=== PATIENT | male | born 1970 | race Caucasian/White ===

== ENCOUNTER 2019-01-27 10:06 | Emergency (ER) | payer OTHER ==
[2019-01-27] MEDS ORDERED: OXYCODONE-ACETAMINOPHEN 5-325 MG TABLET PO ONE (10:27)
--- NOTE | 2019-01-27 10:29 | ER Document Report ---
ED Medical Screen (RME) - General Chief Complaint: Fall Injury Stated Complaint: FALL Time Seen by Provider: 01/27/19 10:18 Primary Care Provider: ERNESTO OLIVO MD [Primary Care Provider] - Follow up as needed Notes: Patient is a 49-year-old male with a history of hypertension who presents the emergency department with a chief complaint of fall. Patient reports 2 days ago he was working at [employer] when he slipped on a piece of wood on metal bleachers. Patient reports he did fall onto his left lower ribs. Patient reports he has had difficulty taking a deep breath over the past 2 days. Patien t reports is extremely painful. Patient denies head injury or loss of consciousness. Patient reports he does have a history of high blood pressure and has been out of his medications for 1 to 2 weeks. TRAVEL OUTSIDE OF THE [place] IN LAST 30 DAYS: No - Related Data Allergies/Adverse Reactions: hydromorphone HCl [From Dilaudid] Adverse Reaction (Severe, Verified 01/27/19 10:18) suicidal ideation Home Medications: blood pressure medication Past Medical History - Social History Chew tobacco use (# tins/day): Yes Frequency of alcohol use: Social Drug Abuse: None - Past Medical History Cardiac Medical History: Reports: Hx Hypertension Past Surgical History: Reports: Hx Orthopedic Surgery - right knee meniscus, right ankle fx - Immunizations Hx Diphtheria, Pertussis, Tetanus Vaccination: No Physical Exam - Vital signs Vitals: Temp Pulse Resp BP Pulse Ox 97.8 F 90 18 205/129 H 100 01/27/19 10:11 01/27/19 10:11 01/27/19 10:11 01/27/19 10:11 01/27/19 10:11 - Respiratory Chest status: Tender Breath sounds: Normal Notes: Tenderness noted to the left lateral and left anterior chest wall. No obvious ecchymosis. Patient unable to take a deep breath due to significant pain. Course - Re-evaluation Re-evalutation: 01/27/19 10:28 Patient upgraded to a level 3 as the patient is extremely hypertensive. Patient reports he has been out of his blood pressure medication for 1 to 2 weeks. Patient denies headache, dizziness, chest pain. Will obtain a chest x-ray with focus on the left side of the ribs. I will give the patient Percocet. Patient agreement with this plan and denies questions at this time. I have greeted and performed a rapid initial assessment of this patient. A comprehensive ED assessment and evaluation of the patient, analysis of test results and completion of the medical decision making process will be conducted by additional ED providers. - Vital Signs Vital signs: Temp Pulse Resp BP Pulse Ox 97.8 F 90 18 205/129 H 100 01/27/19 10:18 01/27/19 10:18 01/27/19 10:18 01/27/19 10:18 01/27/19 10:18 Doctor's Discharge - Discharge Referrals: ERNESTO OLIVO MD [Primary Care Provider] - Follow up as needed
[2019-01-27] MEDS ORDERED: ONDANSETRON HCL INJ/PF 4 MG/2 ML SDV IV ONE (10:54)
--- NOTE | 2019-01-27 11:04 | RADIOLOGY REPORT (SQ) ---
EXAM DESCRIPTION: RIBS LEFT W/PA CHEST COMPLETED DATE/TIME: 01/27/2019 10:47 am REASON FOR STUDY: fall 2 days ago, left lateral/anterior rib pain COMPARISON: None. TECHNIQUE: Frontal view of the chest and additional views of the left ribs acquired. NUMBER OF VIEWS: Four view. LIMITATIONS: None. FINDINGS: FRONTAL CXR: Small left pleural effusion. No pneumothorax. RIBS: Fracture left 9th posterolateral ribs. OTHER: No other significant finding. IMPRESSION: Fracture left posterolateral 9th rib. Left pleural effusion. No pneumothorax. COMMENT: SITE OF TRAUMA/COMPLAINT MARKED/STAMP COMPLETED: YES. TECHNICAL DOCUMENTATION: JOB ID: [id number]- All Rights Reserved Reading location - IP/workstation name: [email or web address]
--- NOTE | 2019-01-27 12:41 | ER Document Report ---
ED General - General Chief Complaint: Fall Injury Stated Complaint: FALL Time Seen by Provider: 01/27/19 10:18 Primary Care Provider: ERNESTO OLIVO MD [Primary Care Provider] - Follow up in 3-5 days Mode of Arrival: Ambulatory Information source: Patient Notes: This 49-year-old male with a history of hypertension who presents the emergency department with a chief complaint of left-sided rib pain post fall. He reports 2 days ago he was working at [employer] when he slipped on a piece of wood on the metal bleachers. Ports he fell on his ribs. Reports his full weight landed on his ribs. Did not hit his head, no change in LOC. [facility] [place] but they were unable to see any ribs on the chest x-ray. He reports difficulty taking a deep breath. Reports it is extremely painful. Denies fever vomiting diarrhea.. TRAVEL OUTSIDE OF THE [place] IN LAST 30 DAYS: No - HPI Onset: Other Onset/Duration: Persistent Severity: Severe Pain Level: 5 Associated symptoms: None Exacerbated by: Coughing, Deep breathing Relieved by: Denies Similar symptoms previously: Yes Recently seen / treated by doctor: Yes - [facility] [place] - Related Data Allergies/Adverse Reactions: hydromorphone HCl [From Dilaudid] Adverse Reaction (Severe, Verified 01/27/19 10:18) suicidal ideation Home Medications: blood pressure medication Past Medical History - General Information source: Patient - Social History Smoking Status: Never Smoker Chew tobacco use (# tins/day): Yes Frequency of alcohol use: Social Drug Abuse: None Occupation: Maintenance for the [employer] Lives with: Family Family History: Reviewed & Not Pertinent Patient has suicidal ideation: No Patient has homicidal ideation: No - Past Medical History Cardiac Medical History: Reports: Hx Hypertension Past Surgical History: Reports: Hx Cholecystectomy, Hx Orthopedic Surgery - right knee meniscus, right ankle fx - Immunizations Hx Diphtheria, Pertussis, Tetanus Vaccination: No Review of Systems - Review of Systems Notes: Review HPI for review of systems., All other systems negative Physical Exam - Vital signs Vitals: Temp Pulse Resp BP Pulse Ox 97.8 F 90 18 205/129 H 100 01/27/19 10:11 01/27/19 10:11 01/27/19 10:11 01/27/19 10:11 01/27/19 10:11 - General General appearance: Alert, Anxious In distress: Mild - HEENT Head: Normocephalic Eyes: Normal Conjunctiva: Normal Neck: Normal, Supple - Respiratory Respiratory status: No respiratory distress Chest status: Tender, Ecchymosis - Left posterior lower ribs, Pain on movement, Pain with cough, Pain with deep breathing. No: Chest mass, Accessory muscle use Breath sounds: Normal Chest palpation: Normal. No: Flail segment, Leith frothy sputum, Subcutaneous emphysema, Sucking chest wound - Cardiovascular Rhythm: Regular Heart sounds: Normal auscultation Murmur: No - Abdominal Inspection: Normal Distension: No distension - Back Back: Normal - Extremities General upper extremity: Normal ROM General lower extremity: Normal ROM, Normal weight bearing - Neurological Neuro grossly intact: Yes Cognition: Normal Orientation: AAOx4 Bj Coma Scale Eye Opening: Spontaneous [place] Coma Scale Verbal: Oriented [place] Coma Scale Motor: Obeys Commands Bj Coma Scale Total: 15 Speech: Normal - Psychological Associated symptoms: Normal affect, Normal mood - Skin Skin Temperature: Warm Skin Moisture: Dry Skin Color: Normal Course - Re-evaluation Re-evalutation: 01/27/19 13:25 49-year-old male presents with left-sided rib pain after he fell on some metal bleachers at school 2 days ago. Patient [facility] told he could not see the ribs on a chest x-ray. Patient reports increased pain with deep breathing or cough. Patient received 2 Percocets and Toradol while here. Reports pain has lessened but still hurts. He was instructed on the x- ray that notes fractured ninth rib and pleural effusion. He was instructed on the importance of cough deep breathe to prevent pneumonia. He was instructed to return here for worsening symptoms concerns fever difficulty breathing. He verbalized understanding to all instructions. Ribs w/Chest X-Ray 01/27/19 10:26 IMPRESSION: Fracture left posterolateral 9th rib. Left pleural effusion. No pneumothorax. Dictation of this chart was performed using voice recognition software; therefore, there may be some unintended grammatical errors. - Vital Signs Vital signs: Temp Pulse Resp BP Pulse Ox 98.6 F 76 16 184/117 H 100 01/27/19 13:29 01/27/19 13:29 01/27/19 13:29 01/27/19 13:29 01/27/19 13:29 - Diagnostic Test Radiology reviewed: Image reviewed, Reports reviewed Discharge - Discharge Clinical Impression: Fractured rib, Pleural effusion Condition: Stable Disposition: HOME, SELF-CARE Instructions: Ibuprofen (General) ([facility]), Pleural Effusion ([facility]), Rib Injuries and Fractures ([facility]), Toradol Injection ([facility]) Additional Instructions: *You have been evaluated for rib pain, fractured 9th rib, pleural effusion *Increase fluid intake as discussed *cough and deep breathe at least once an hour *Take medication as prescribed--- take Motrin as prescribed take the Percocet for acute pain *Monitor your temperature *Follow up with a primary care provider within 5 days *Return to ED for worsening condition, changes, needs Prescriptions: Ibuprofen [Motrin 800 mg Tablet] 800 mg PO TID #30 tablet Oxycodone HCl/Acetaminophen [Percocet 5-325 mg Tablet] 1 tab PO ASDIR PRN #15 tablet PRN Reason: Forms: Return to Work, Elevated Blood Pressure Referrals: ERNESTO OLIVO MD [Primary Care Provider] - Follow up in 3-5 days
[2019-01-27] MEDS ORDERED: KETOROLAC TROMETHAMINE 60 MG/2 ML SDV IM ONE (12:50)
[2019-01-27] MEDS ORDERED: KETOROLAC TROMETHAMINE INJ/PF 30 MG/1 ML SDV IV ONE (13:01)
[2019-01-27 13:32] VITALS: BP 184/117
== END 2019-01-27 13:31 | disposition home or self-care (01) ==
LOC: ER 10:06
DX: S22.39XA Fracture of one rib, unspecified side, initial encounter for closed fracture (principal); J90 Pleural effusion, not elsewhere classified; R07.81 Pleurodynia; R06.9 Unspecified abnormalities of breathing; W01.0XXA Fall on same level from slipping, tripping and stumbling without subsequent striking against object, initial encounter; Y92.219 Unspecified school as the place of occurrence of the external cause
CPT/HCPCS: 99283; 96374; 96375; 71101; J1885; J2405

== ENCOUNTER 2019-02-19 06:56 | Emergency (ER) | payer OTHER ==
--- NOTE | 2019-02-19 07:46 | EKG REPORT ---
SEVERITY:- NORMAL ECG - SINUS RHYTHM : Confirmed by: Bubba Ortiz MD 19-Feb-2019 07:45:35
[2019-02-19] MEDS ORDERED: VALSARTAN 160 MG TABLET PO ONE (09:07)
[2019-02-19] MEDS ORDERED: AMLODIPINE BESYLATE 5 MG TABLET PO ONE (09:07)
[2019-02-19] MEDS ORDERED: HYDROCHLOROTHIAZIDE 12.5 MG TABLET PO ONE (09:07)
--- NOTE | 2019-02-19 09:14 | ER Document Report ---
ED Respiratory Problem - General Chief Complaint: Shortness Of Breath Stated Complaint: SHORT OF BREATH/CHEST PRESSURE Time Seen by Provider: 02/19/19 09:04 Primary Care Provider: ERNESTO OLIVO MD [Primary Care Provider] - Follow up as needed Notes: Mr. Quinn is a 49 yo m w/ PMH HTN and remote smoker presenting to the ED for cough and shortness of breath. Patient states that he broke several ribs on January 25 and was diagnosed on the . Patient states he was not discharged with an incentive spirometer. He states that he feels as if his left side of his lung is swollen and is painful in that area. Patient denies any fever or chills. He does endorse cough which is intermittently productive of white sputum without any blood. He denies any vomiting or diarrhea but does endorse persistent nausea. No decrease in p.o. intake. No lower extremity edema. Patient states he has no known history of MIs in the past or cardiac issues. He takes amlodipine, valsartan and HCTZ for his blood pressure but was unable to take it this morning. He states that his left-sided chest has been hurting significantly. Patient denies any abdominal pain or lower extremity edema. No known ill contacts. No orthopnea or paroxysmal dyspnea. Patient states that he smokes almost a pack a day for over 10 years but quit 15 years ago. TRAVEL OUTSIDE OF THE [place] IN LAST 30 DAYS: No - Related Data Allergies/Adverse Reactions: hydromorphone HCl [From Dilaudid] Adverse Reaction (Severe, Verified 01/27/19 10:18) suicidal ideation Home Medications: valsartan. amilodipine Past Medical History - Social History Smoking Status: Former Smoker Chew tobacco use (# tins/day): Yes Frequency of alcohol use: Occasional Drug Abuse: None Family History: Reviewed & Not Pertinent Patient has suicidal ideation: No Patient has homicidal ideation: No - Past Medical History Cardiac Medical History: Reports: Hx Hypertension Past Surgical History: Reports: Hx Cholecystectomy, Hx Orthopedic Surgery - right knee meniscus, right ankle fx - Immunizations Hx Diphtheria, Pertussis, Tetanus Vaccination: No Review of Systems - Review of Systems Constitutional: See HPI EENT: No symptoms reported Cardiovascular: No symptoms reported Respiratory: See HPI Gastrointestinal: No symptoms reported Genitourinary: No symptoms reported Male Genitourinary: No symptoms reported Musculoskeletal: No symptoms reported Skin: No symptoms reported Hematologic/Lymphatic: No symptoms reported Neurological/Psychological: No symptoms reported Physical Exam - Vital signs Vitals: Temp Pulse Resp BP Pulse Ox 98.3 F 78 20 168/107 H 97 02/19/19 07:13 02/19/19 07:13 02/19/19 07:13 02/19/19 07:13 02/19/19 07:13 Interpretation: Hypertensive - General General appearance: Appears well, Alert - HEENT Head: Normocephalic, Atraumatic Eyes: Normal Pupils: PERRL - Respiratory Respiratory status: No respiratory distress Chest status: Tender - Left lower lateral chest wall. Breath sounds: Decreased air movement - Left lower lobe is decreased. Some crackles in the left lower lobe., Nonproductive cough, Rales Chest palpation: Normal - Cardiovascular Rhythm: Regular Heart sounds: Normal auscultation Murmur: No - Abdominal Inspection: Normal Distension: No distension Bowel sounds: Normal Tenderness: Nontender Organomegaly: No organomegaly - Back Back: Normal, Nontender - Extremities General upper extremity: Normal inspection, Nontender, Normal color, Normal ROM, Normal temperature General lower extremity: Normal inspection, Nontender, Normal color, Normal ROM, Normal temperature, Normal weight bearing. No: Edema, Claudine's sign - Neurological Neuro grossly intact: Yes Cognition: Normal Orientation: AAOx4 Bj Coma Scale Eye Opening: Spontaneous Bj Coma Scale Verbal: Oriented Bj Coma Scale Motor: Obeys Commands Bj Coma Scale Total: 15 Speech: Normal Motor strength normal: LUE, RUE, LLE, RLE Sensory: Normal - Psychological Associated symptoms: Normal affect, Normal mood - Skin Skin Temperature: Warm Skin Moisture: Dry Skin Color: Normal Course - Re-evaluation Re-evalutation: Patient is generally well-appearing and nontoxic. Initial vitals notable for elevated blood pressure however the patient has known history of hypertension on 3 medications and was unable to take his meds this morning. Will order his p.o. antihypertensives now. Differential diagnosis includes pneumonia, pleural effusion, ACS (less likely), bronchitis 02/19/19 09:19 EKG nonischemic. CBC and CMP otherwise unremarkable. Initial troponin is negative. Will obtain chest x-ray to assess for possible pneumonia. Chest x-ray shows evidence of left-sided rib fractures eighth and ninth and left-sided pleural effusion with left basilar atelectasis which is unchanged from prior. Given that the patient is endorsing now a cough. Will treat as community-acquired pneumonia secondary to splinting. Patient ordered for ceftriaxone here in the ED. Will give first dose of azithromycin here in the ED. Patient will be discharged with remaining course. Patient also discharged and instructed on how to use an incentive spirometer here in ED. Recommended to use a 15-20 times throughout the day. 02/19/19 14:47 Repeat troponin is negative. Patient will be discharged with incentive spirometer, remaining course of azithromycin as well as ibuprofen 800 for his rib pain/healing rib fractures. Given return precautions and instructed to follow-up with his primary care doctor as needed. - Vital Signs Vital signs: Temp Pulse Resp BP Pulse Ox 97.8 F 71 18 164/94 H 98 02/19/19 15:05 02/19/19 15:05 02/19/19 15:05 02/19/19 15:05 02/19/19 15:05 - Laboratory Result Diagrams: 02/19/19 09:52 02/19/19 09:52 Laboratory results interpreted by me: 02/19/19 09:52 NT-Pro-B Natriuret Pep 170 H Discharge - Discharge Clinical Impression: Cough Closed rib fracture Qualifiers: Encounter type: subsequent encounter Rib fracture type: multiple ribs Laterality: left Fracture healing: with routine healing Qualified Code(s): S22.42XD - Multiple fractures of ribs, left side, subsequent encounter for fracture with routine healing Condition: Good Disposition: HOME, SELF-CARE Instructions: Cough Suppressant & Expectorant Medications, Rib Injuries and Fractures ([facility]) Additional Instructions: It is important that you make sure you finish the full course of antibiotics as prescribed. It is also important that you use the incentive spirometer at least 15-20 times per day to help you bring up any phlegm. It might initially be painful because of the rib fractures. I would also recommend that you use 800 g of ibuprofen every 8 hours regularly to help with the pain related to the incentive spirometer and coughing. Prescriptions: Azithromycin 250 mg PO DAILY #4 tablet Ibuprofen [Ibu] 800 mg PO TID #90 tablet Referrals: ERNESTO OLIVO MD [Primary Care Provider] - Follow up as needed
--- NOTE | 2019-02-19 09:39 | RADIOLOGY REPORT (SQ) ---
EXAM DESCRIPTION: CHEST 2 VIEWS COMPLETED DATE/TIME: 02/19/2019 9:22 am REASON FOR STUDY: sob COMPARISON: 01/27/2019. EXAM PARAMETERS: NUMBER OF VIEWS: two views TECHNIQUE: Digital Frontal and Lateral radiographic views of the chest acquired. RADIATION DOSE: NA LIMITATIONS: none FINDINGS: LUNGS AND PLEURA: Streaky density in the left lung base with left pleural effusion, unchan ged. No pneumothorax. Right lung clear. MEDIASTINUM AND HILAR STRUCTURES: No masses or contour abnormalities. HEART AND VASCULAR STRUCTURES: Heart normal size. No evidence for failure. BONES: Fractures of the left 8th and 9th ribs. HARDWARE: None in the chest. OTHER: No other significant finding. IMPRESSION: LEFT RIB FRACTURES. LEFT PLEURAL EFFUSION AND LEFT BASILAR ATELECTASIS UNCHANGED. TECHNICAL DOCUMENTATION: JOB ID: [id number]- All Rights Reserved Reading location - IP/workstation name: [email or web address]
[2019-02-19 10:00] LABS: ABSOLUTE EOSINOPHILS # (AUTO) 0.3 10^3/uL (0.0-0.6); ABSOLUTE LYMPHOCYTES (AUTO) 1.7 10^3/uL (0.5-4.7); ABSOLUTE MONOCYTES (AUTO) 0.7 10^3/uL (0.1-1.4); ABSOLUTE NEUT (AUTO) 5.4 10^3/uL (1.7-8.2); BASOPHILS % (AUTO) 0.6 % (0-2); EOSINOPHILS % (AUTO) 3.5 % (0-6); HEMATOCRIT 42.2 % (37.9-51.0); HEMOGLOBIN 14.6 g/dL (13.5-17.0); LYMPHOCYTES % (AUTO) 21.2 % (13-45); MEAN CORPUSCULAR HEMOGLOBIN 32.3 pg (27.0-33.4); MEAN CORPUSCULAR HGB CONC 34.5 g/dL (32.0-36.0); MEAN CORPUSCULAR VOLUME 94 fl (80-97); PLATELET COUNT 284 10^3/uL (150-450); RED BLOOD COUNT 4.51 10^6/uL (4.35-5.55); SEGMENTED NEUTROPHILS % (AUTO) 65.7 % (42-78); TOTAL CELLS COUNTED % (AUTO) 100 %; WHITE BLOOD COUNT 8.2 10^3/uL (4.0-10.5)
[2019-02-19 10:18] LABS: ALBUMIN 4.1 g/dL (3.5-5.0); ALKALINE PHOSPHATASE 78 U/L (38-126); ANION GAP 11 (5-19); ASPARTATE AMINO TRANSFERASE 17 U/L (17-59); BILIRUBIN,DIRECT 0.2 mg/dL (0.0-0.4); BILIRUBIN,TOTAL 0.5 mg/dL (0.2-1.3); BLOOD UREA NITROGEN 16 mg/dL (7-20); CALCIUM 9.3 mg/dL (8.4-10.2); CARBON DIOXIDE 27 mmol/L (22-30); CHLORIDE 104 mmol/L (98-107); GLUCOSE 88 mg/dL (75-110); TOTAL PROTEIN 7.1 g/dL (6.3-8.2)
[2019-02-19 10:29] LABS: NT PRO BNP 170 pg/mL (<125)
[2019-02-19 10:30] LABS: TROPONIN I < 0.012 ng/mL
[2019-02-19] MEDS ORDERED: CEFTRIAXONE 1 GM/D5W RTU 1 GM/50 ML RTUPB IV ONE (11:55)
[2019-02-19] MEDS ORDERED: AZITHROMYCIN 250 MG TABLET PO ONE (11:55)
[2019-02-19 15:07] VITALS: BP 164/94
== END 2019-02-19 15:04 | disposition home or self-care (01) ==
LOC: ER 06:56
DX: S22.42XD Multiple fractures of ribs, left side, subsequent encounter for fracture with routine healing (principal); W19.XXXD Unspecified fall, subsequent encounter; J98.11 Atelectasis; R05 Cough; R06.02 Shortness of breath; R11.0 Nausea; I10 Essential (primary) hypertension; Z79.899 Other long term (current) drug therapy; Z72.0 Tobacco use
CPT/HCPCS: 93005; 99284; 96365; 36415; 87040; 83605; 85025; 80053; 84484; 83880; 71046; 93010; J0696